=== PATIENT | female | born 1970 | race Caucasian/White ===

== ENCOUNTER → 2017-03-12 | Outpatient (CLI) | payer BC ==
[2017-03-12 19:02] LABS: ALT 33 U/L (9-52); AST 23 U/L (14-36); Alkaline Phosphatase 58 U/L (38-126); Anion Gap 12 mmol/L; Blood Urea Nitrogen 7 mg/dL (7-17); Calcium 9.4 mg/dL (8.4-10.2); Carbon Dioxide 23 mmol/L (22-30); Chloride 102 mmol/L (98-107); Cholesterol 211 mg/dL (<200); Glucose 90 mg/dL (74-99); HDL Cholesterol 53 mg/dL (40-60); Non-African American GFR(MDRD) >60 (>60 ml/min/1.73 sqM); Potassium 4.1 mmol/L (3.5-5.1); Sodium 137 mmol/L (137-145); Total Bilirubin 0.7 mg/dL (0.2-1.3); Triglycerides 160 mg/dL (<150)
[2017-03-13 02:53] LABS: Basophils # (A) 0.1 k/uL (0-0.2); Basophils % (A) 1 %; CH 29.3; CHCM 31.8; Eosinophils # (A) 0.2 k/uL (0-0.7); Eosinophils % (A) 2 %; HCT 48.2 % (34.0-46.0); HDW 2.29; HGB 14.9 gm/dL (11.4-16.0); Luc # (Auto) 0.14; Luc % (Auto) 1; Lymphocytes # (A) 2.1 k/uL (1.0-4.8); Lymphocytes % (A) 21 %; MCH 28.5 pg (25.0-35.0); MCHC 30.8 g/dL (31.0-37.0); MCV 92.5 fL (80.0-100.0); Mean Platelet Volume 9.1; Monocytes # (A) 0.6 k/uL (0-1.0); Monocytes % (A) 6 %; Neutrophils # (A) 6.9 k/uL (1.3-7.7); Neutrophils % (A) 69 %; RBC 5.21 m/uL (3.80-5.40); RDW 13.4 % (11.5-15.5); WBC 10.1 k/uL (3.8-10.6); WBC (Perox) 10.25
== END ==
LOC: MMGSC 11:07
PROVIDERS: ATTEND Family Medicine
DX: Z00.00 Encounter for general adult medical examination without abnormal findings (principal)
CPT/HCPCS: 36415; 80053; 80061; 84439; 84443; 85025

== ENCOUNTER → 2017-03-19 | Outpatient (CLI) | payer BC | LOC: MMGSC 11:29 | PROVIDERS: ATTEND Family Medicine | DX: N89.8 Other specified noninflammatory disorders of vagina (principal); R53.83 Other fatigue | CPT/HCPCS: 36415; 82306; 84480; 87070; 87205; 87252 ==

== ENCOUNTER → 2017-04-12 | Outpatient (CLI) | payer BC | END | disposition home or self-care (01) | LOC: MMGSC 16:14 | PROVIDERS: ATTEND Family Medicine | DX: E03.9 Hypothyroidism, unspecified (principal) | CPT/HCPCS: 36415; 84439; 84443 ==

== ENCOUNTER → 2018-05-20 | Outpatient (CLI) | payer BC ==
--- NOTE | 2018-05-22 10:06 | MM ---
Reason for exam: screening (asymptomatic). Last mammogram was performed 2 years and 4 months ago. History: Patient has history of other cancer at age 36. Family history of breast cancer in paternal aunt at age 60. Took hormonal contraceptives for 6 years beginning at age 17. Physical Findings: A clinical breast exam by your physician is recommended on an annual basis and results should be correlated with mammographic findings. MG 3D Screening Mammo W/Cad Bilateral CC and MLO view(s) were taken. Prior study comparison: January 25, 2016, bilateral MG 3d diag mammo w/cad [facility]. April 06, 2015, left breast MG diagnostic mammo LT w CAD. The breast tissue is heterogeneously dense. This may lower the sensitivity of mammography. No significant changes when compared with prior studies. ASSESSMENT: Negative, BI-RAD 1 RECOMMENDATION: Routine screening mammogram of both breasts in 1 year. Manage on a clinical basis with regard to bilateral breast pain.
== END | disposition home or self-care (01) ==
LOC: RADMAMWWP 16:46
PROVIDERS: ATTEND Family Medicine
DX: Z12.31 Encounter for screening mammogram for malignant neoplasm of breast (principal)
CPT/HCPCS: 77063; 77067

== ENCOUNTER → 2018-09-03 | Outpatient (CLI) | payer BC ==
--- NOTE | 2018-09-04 10:37 | US ---
EXAMINATION TYPE: US axilla LT DATE OF EXAM: 09/03/2018 COMPARISON: NONE CLINICAL HISTORY: R59.0 Localized Enlarged Lymph Node. Patient feels lump left axilla for 3 years, sh e states it comes and goes. The left axilla was scanned. Technologist had patient put finger on area that lump is felt and that area was scanned, too, No definite abnormality noted. IMPRESSION: 1. No ultrasound abnormality at patient's palpable region.
== END | disposition home or self-care (01) ==
LOC: RADUSWWP 16:18
PROVIDERS: ATTEND Family Medicine
DX: R59.0 Localized enlarged lymph nodes (principal)

== ENCOUNTER → 2019-10-23 | Outpatient (CLI) | payer BC ==
--- NOTE | 2019-10-24 13:58 | MM ---
Reason for exam: screening (asymptomatic). Last mammogram was performed 1 year and 5 months ago. History: Patient has history of other cancer at age 36. Family history of breast cancer in paternal aunt at age 60. Took hormonal contraceptives for 6 years beginning at age 17. Physical Findings: A clinical breast exam by your physician is recommended on an annual basis and results should be correlated with mammographic findings. MG 3D Screening Mammo W/Cad Bilateral CC and MLO view(s) were taken. Prior study comparison: May 20, 2018, bilateral MG 3d screening mammo w/cad. January 25, 2016, bilateral MG 3d diag mammo w/cad [facility]. The breast tissue is heterogeneously dense. This may lower the sensitivity of mammography. Stable benign calcifications. There is no discrete abnormality. No significant changes when compared with prior studies. ASSESSMENT: Benign, BI-RAD 2 RECOMMENDATION: Routine screening mammogram of both breasts in 1 year.
== END | disposition home or self-care (01) ==
LOC: RADMAMWWP 16:38
PROVIDERS: ATTEND Family Medicine
DX: Z12.31 Encounter for screening mammogram for malignant neoplasm of breast (principal)
CPT/HCPCS: 77063; 77067

== ENCOUNTER → 2020-10-21 | Outpatient (CLI) | payer BC ==
--- NOTE | 2020-10-21 13:07 | US ---
EXAMINATION TYPE: US pelvis complete transvag DATE OF EXAM: 10/21/2020 COMPARISON: NONE CLINICAL HISTORY: 50-year-old female N95.0 Post menopausal bleeding. TECHNIQUE: Transabdominal sonographic images of the pelvis were acquired. Transvaginal sonographic i mages were medically necessary to better assess the following anatomy: ovaries Date of LMP: One year prior, started a week ago, still bleeding FINDINGS: EXAM MEASUREMENTS: Uterus: 8.5 x 4.0 x 4.4 cm Endometrial Stripe: 0.9 cm Right Ovary: 2.7 x 1.3 x 3.3cm Left Ovary: 2.7 x 1.9 x 1.8cm 1. Uterus: Anteverted, with slightly heterogeneous myometrium. 4 mm cervical nabothian cysts noted. 2. Endometrium: thickened 3. Right Ovary: right simple appearing cyst measuring 1.4 x 1.7 x 1.5cm 4. Left Ovary: wnl 5. Bilateral Adnexa: wnl 6. Posterior cul-de-sac: wnl IMPRESSION: 1. Endometrial stripe is thickened for a postmenopausal female at 9 mm. Differential considerations i nclude endometrial polyps, hyperplasia, and endometrial carcinoma. PROTOCOL OFFICER referral recommended for fu rther evaluation/management. 2. A 1.7 cm cyst of the right ovary. In a postmenopausal female, annual ultrasound surveillance is re commended.
== END | disposition home or self-care (01) ==
LOC: RADUSWWP 10:35
PROVIDERS: ATTEND Family Medicine
DX: N83.201 Unspecified ovarian cyst, right side (principal); R93.89 Abnormal findings on diagnostic imaging of other specified body structures; Z78.0 Asymptomatic menopausal state
CPT/HCPCS: 76830; 76856

== ENCOUNTER → 2020-12-30 | Outpatient (CLI) | payer BC ==
--- NOTE | 2021-01-03 09:52 | MM ---
Reason for exam: screening (asymptomatic). Last mammogram was performed 1 year and 2 months ago. History: Patient is postmenopausal and has history of other cancer at age 36. Family history of breast cancer in paternal aunt at age 60. Took hormonal contraceptives for 6 years beginning at age 17. Physical Findings: A clinical breast exam by your physician is recommended on an annual basis and results should be correlated with mammographic findings. MG 3D Screening Mammo W/Cad Bilateral CC and MLO view(s) were taken. Prior study comparison: October 23, 2019, bilateral MG 3d screening mammo w/cad. May 20, 2018, bilateral MG 3d screening mammo w/cad. No significant changes when compared with prior studies. ASSESSMENT: Benign, BI-RAD 2 RECOMMENDATION: Routine screening mammogram of both breasts in 1 year.
== END | disposition home or self-care (01) ==
LOC: RADMAMWWP 09:36
PROVIDERS: ATTEND Family Medicine
DX: Z12.31 Encounter for screening mammogram for malignant neoplasm of breast (principal); Z78.0 Asymptomatic menopausal state; Z80.3 Family history of malignant neoplasm of breast
CPT/HCPCS: 77063; 77067

== ENCOUNTER → 2023-12-14 | Outpatient (CLI) | payer BC ==
--- NOTE | 2023-12-18 11:15 | MM ---
Reason for Exam: Screening (asymptomatic). Last mammogram was performed 2 year(s) and 11 month(s) ago. Patient History: Menarche at age 10. First Full-Term at age 24. Postmenopausal. Other cancer, age 36. Hormonal Contraceptives for 6 years from age 17 until age 23. Paternal aunt had breast cancer, age 60. Risk Values: Sonia 5 year model risk: 1.3%. NCI Lifetime model risk: 9.1%. Prior Study Comparison: 05/20/2018 Bilateral Screening Mammogram, [facility]. 10/23/2019 Bilateral Screening Mammogram, [facility]. 12/30/2020 Bilateral Screening Mammogram, [facility]. Tissue Density: The breasts are heterogeneously dense, which may obscure small masses. Findings: Analyzed By CAD. There is no suspicious group of microcalcifications or new suspicious mass in either breast. Benign-appearing calcifications. There is an 8 mm nodule within the upper outer quadrant of the left breast for which spot compression views recommended. Overall Assessment: Incomplete: need additional imaging evaluation, BI-RAD 0 Management: Diagnostic Mammogram of the left breast. . Patient should continue monthly self-breast exams. A clinical breast exam by your physician is recommended on an annual basis. This exam should not preclude additional follow-up of suspicious palpable abnormalities. Note on Sonia scores and lifetime risk: 1. A Sonia score greater than 3% is considered moderate risk. If this is the case, consider specialist referral to assess eligibility for a risk reducing agent. 2. If overall lifetime risk for the development of breast cancer is 20% or higher, the patient may qualify for future screening with alternating mammogram and breast MRI. Electronically signed and approved by: Melvin Flores M.D. Radiologis
== END | disposition home or self-care (01) ==
LOC: RADMAMWWP 07:47
PROVIDERS: ATTEND Family Medicine
DX: Z12.31 Encounter for screening mammogram for malignant neoplasm of breast (principal); Z80.3 Family history of malignant neoplasm of breast; Z78.0 Asymptomatic menopausal state
CPT/HCPCS: 77063; 77067

== ENCOUNTER → 2023-12-19 | Outpatient (CLI) | payer BC ==
--- NOTE | 2023-12-19 11:05 | MM ---
Reason for Exam: Additional evaluation requested from abnormal screening. Last screening mammogram was performed less than 1 month ago. Patient History: Menarche at age 10. First Full-Term at age 24. Postmenopausal. Patient has history of breast feeding. Hormonal Contraceptives for 6 years from age 17 until age 23. Paternal aunt had breast cancer, age 60. Risk Values: Sonia 5 year model risk: 1.3%. NCI Lifetime model risk: 9.1%. Prior Study Comparison: 10/23/2019 Bilateral Screening Mammogram, [facility]. 12/30/2020 Bilateral Screening Mammogram, [facility]. 12/14/2023 Bilateral MG 3D screening mammo w/cad, [facility]. Tissue Density: Left: The breasts are heterogeneously dense, which may obscure small masses. Findings: Analyzed By CAD. On compression there is persistence of a 0.5 cm oval located 9 cm from the nipple lower-outer quadrant middle position approximately 4:00. Additional workup with ultrasound is recommended. No suspicious groups of microcalcifications, spiculated or lobular masses, architectural distortion or other secondary signs of malignancy are mammographically apparent. Overall Assessment: Incomplete: need additional imaging evaluation, BI-RAD 0 Management: Diagnostic Breast Ultrasound of the left breast. A negative mammogram report should not preclude additional follow up of suspicious palpable abnormalities. Patient should continue monthly self breast exam. A clinical breast exam by your physician is recommended on an annual basis and results should be correlated with mammographic findings. Electronically signed and approved by: Marino Crawley D.O. Radiologis
--- NOTE | 2023-12-19 13:19 | USB ---
Reason for Exam: Additional evaluation requested from abnormal screening. Patient History: Menarche at age 10. First Full-Term at age 24. Postmenopausal. Patient has history of breast feeding. Hormonal Contraceptives for 6 years from age 17 until age 23. Paternal aunt had breast cancer, age 60. Risk Values: Sonia 5 year model risk: 1.3%. NCI Lifetime model risk: 9.1%. Technique: Method: Targeted. Prior Study Comparison: 10/23/2019 Bilateral Screening Mammogram, [facility]. 12/30/2020 Bilateral Screening Mammogram, [facility]. 12/14/2023 Bilateral MG 3D screening mammo w/cad, [facility]. Findings: The lower outer quadrant of the left breast, the axilla of the left breast and the retroareolar of the left breast were scanned. At the 5:00 position 1 cm from the nipple there is a simple appearing cyst measuring 0.7 x 0.5. In the 4:00 position 9 cm nipple there is a 0.4 x 0.2 x 0.5 cm simple appearing cyst. This area appears to correlate with mammographic finding.. Overall Assessment: Benign, BI-RAD 2 Management: Screening Mammogram of both breasts in 1 year. A clinical breast exam by your physician is recommended on an annual basis and results should be correlated with mammographic findings. This exam should not preclude additional follow-up of suspicious palpable abnormalities. Results were given to the patient verbally at the time of exam. Electronically signed and approved by: Marino Crawley D.O. Radiologis
== END | disposition home or self-care (01) ==
LOC: RADMAMWWP 10:14
PROVIDERS: ATTEND Family Medicine
DX: R92.332 Mammographic heterogeneous density, left breast (principal); Z78.0 Asymptomatic menopausal state; Z80.3 Family history of malignant neoplasm of breast
CPT/HCPCS: 77061; 77065

== ENCOUNTER → 2024-06-24 | Outpatient (CLI) | payer BC ==
[2024-06-24 15:58] VITALS: BP 121/88; PULSE 81; RESP 16; TEMP 97.9
--- NOTE | 2024-06-24 16:45 | P.SLEEP ---
History of Present Illness H&P Date: 06/24/24 This is a 44-year-old female patient who was referred to me for sleep apnea evaluation. The patient was referred by Dr. Sandoval from cardiology. The patient has had difficulties with refractory hypertension and the patient is currently taking 4 different antihypertensive medication. Her blood pressure is finally under good control. She is morbidly obese. She has a preserved LV function without any underlying cardiomyopathy. Her other comorbidities include hyperlipidemia and hypothyroidism and acid reflux. The patient is currently in home care. 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 In the morning, she has another patient that she depends on between 7 AM and 9 AM. She ultimately gets home at around 10 AM and she is going to sleep at around 11 AM in the morning and she wakes up 4 PM. She is averaging about 6 hours of sleep. Takes a few minutes to fall asleep. She snores. She also has fragmented sleep and she is waking up choking and gasping for air. She will occasionally sleep talks. Her current Gansevoort score is at 13. She sleeps on her side and she is a mouth breather. No substance abuse. No alcoholism. No excessive utilization of caffeinated beverages. No history of any motor vehicle accident because of feeling drowsy or sleepy. She wakes up few times the middle of the night to urinate but she is able to generate sleep without any major difficulties. Based on all this, the patient was referred to me for further evaluation. No history of any seizure activity. No anxiety. No depression. No night terrors. No nighttime heartburn chest pain or shortness of breath. Review of Systems Constitutional: Reports daytime sleepiness, Reports fatigue, Reports weight gain Eyes: denies as per HPI, denies blurred vision, denies bulging eye, denies decreased vision, denies diplopia, denies discharge, denies dry eye, denies irritation, denies itching, denies pain, denies photophobia, denies loss of peripheral vision, denies loss of vision, denies tunnel vision/blind spots Ears: deny: decreased hearing, ear discharge, earache, tinnitus Ears, nose, mouth and throat: Reports as per HPI Breasts: absent: as per HPI, change in shape, gynecomastia, masses, nipple discharge, pain, skin changes, swelling Cardiovascular: Reports high blood pressure Respiratory: Reports snoring Gastrointestinal: Reports as per HPI Genitourinary: Reports as per HPI Menstruation: Reports as per HPI Musculoskeletal: Reports as per HPI Musculoskeletal: absent: ankle pain, ankle stiffness, ankle swelling, as per HPI, elbow pain, elbow stiffness, elbow swelling, foot pain, foot stiffness, foot swelling, hand pain, hand stiffness, hand swelling, hip pain, hip stiffness, hip swelling, knee pain, knee stiffness, knee swelling, shoulder pain, shoulder stiffness, shoulder swelling, wrist pain, wrist stiffness, wrist swelling Integumentary: Reports as per HPI Neurological: Reports as per HPI Psychiatric: Reports hypersomnia, Reports irritability, Reports sleep disturbances Endocrine: Reports as per HPI, Reports fatigue Hematologic/Lymphatic: Reports as per HPI Allergic/Immunologic: Reports as per HPI Past Medical History Past Medical History: GERD/Reflux, Hyperlipidemia, Hypertension, Thyroid Disorder Additional Past Medical History / Comment(s): Borderline diabetic, feet swell - have to elevate, then get muscle cramps. History of Any Multi-Drug Resistant Organisms: None Reported Additional Past Surgical History / Comment(s): Thyroidectomy, wisdom tooth extraction Past Psychological History: Depression Smoking Status: Current every day smoker, Vaper Past Alcohol Use History: Rare Past Drug Use History: Marijuana Additional Drug Use History / Comment(s): Gummies and marijuana for pain and sleep. - Past Family History Father Family Medical History: Congestive Heart Failure (CHF), CVA/TIA, GERD/Reflux, Hyperlipidemia, Hypertension, Sleep Apnea/CPAP/BIPAP Additional Family Medical History / Comment(s): Snoring, quadrauple bypass - 5 stents - heart was at about 40%, Mother Family Medical History: Thyroid Disorder Additional Family Medical History / Comment(s): Restless legs, Medications and Allergies Home Medications Medication Instructions Recorded Confirmed Type Atorvastatin [Lipitor] 20 mg PO DAILY 06/24/24 06/24/24 History Ibuprofen [Motrin] 800 mg PO DIRECTED 06/24/24 06/24/24 History Levothyroxine Sodium [Synthroid] 150 mcg PO DAILY 06/24/24 06/24/24 History Omeprazole 20 mg PO DAILY 06/24/24 06/24/24 History Spironolactone 50 mg PO DAILY 06/24/24 06/24/24 History amLODIPine [Norvasc] 10 mg PO DAILY 06/24/24 06/24/24 History carvediloL [Coreg] 6.25 mg PO BID 06/24/24 06/24/24 History lisinopriL 40 mg PO DAILY 06/24/24 06/24/24 History Allergies Allergy/AdvReac Type Severity Reaction Status Date / Time Sulfa (Sulfonamide AdvReac Unknown Unknown Unverified 06/24/24 15:45 Antibiotics) Physical Exam Vitals: Vital Signs Temp Pulse Resp BP Pulse Ox 06/24/24 15:58 97.9 F 81 16 121/88 97 Intake and Output 06/24/24 06/24/24 06/24/24 06:59 14:59 22:59 Other: Weight 114.419 kg The patient appeared well nourished and normally developed. Vital signs as documented. The patient is morbidly obese with a BMI of 43.9 and a weight of 252 pounds Head exam is unremarkable. No scleral icterus or corneal arcus noted. Neck is without jugular venous distension, thyromegaly, or carotid bruits. Carotid upstrokes are brisk bilaterally. Mallampati class IV with significant crowding of posterior pharynx Lungs are clear to auscultation and percussion. Cardiac exam reveals the PMI to be normally sized and situated. Rhythm is regular. First and second heart sounds normal. No murmurs, rubs or gallops. Abdominal exam reveals normal bowel sounds, no masses, no organomegaly and no aortic enlargement. Extremities are nonedematous and both femoral and pedal pulses are normal. Examination of the skin revealed no evidence of significant rashes, suspicious appearing nevi or other concerning lesions. Neurologically, the patient is awake and alert and the patient does not have any focal neurological deficit. Cranial nerves are essentially intact. 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 Optimize sleep hygiene measures. Will recommend maintaining a regular sleep schedule and avoid any form of sleep deprivation and the patient was asked to extend sleep hours on average of 7 hours per night. A polysomnography be obtained to rule out obstructive sleep apnea. This will be an afternoon study as the patient is doing night shifts. Continue same medication and monitor the blood pressure control. Will continue to follow make further recommendations based on the results of the sleep study. Sleep Note - Sleep Data ESS Total: 13 - Sleep Note Sleep Note: Temperature: 97.9 F Pulse Rate: 81 Respiratory Rate: 16 Blood Pressure: 121/88 SpO2: 97 Height: 5 ft 3.5 in Weight: 114.419 kg BMI: Neck Circumference: 16.5
== END ==
LOC: 3 N SLEEP 15:34
PROVIDERS: ATTEND Internal Medicine Critical Care Medicine
CPT/HCPCS: 99211

== ENCOUNTER → 2024-08-15 | Outpatient (CLI) | payer BC ==
--- NOTE | 2024-08-19 00:53 | P.PCN ---
Date of Procedure: 08/16/24 Indications for Procedure: Home sleep study testing Date of service is 08/16/2024 Pertinent history This is a 44-year-old female patient who was referred to me for sleep apnea evaluation. The patient was referred by Dr. Sandoval from cardiology. The patient has had difficulties with refractory hypertension and the patient is currently taking 4 different antihypertensive medication. Her blood pressure is finally under good control. She is morbidly obese. She has a preserved LV function without any underlying cardiomyopathy. Her other comorbidities include hyperlipidemia and hypothyroidism and acid reflux. The patient is currently in home care. 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 In the morning, she has another patient that she depends on between 7 AM and 9 AM. She ultimately gets home at around 10 AM and she is going to sleep at around 11 AM in the morning and she wakes up 4 PM. She is averaging about 6 hours of sleep. Takes a few minutes to fall asleep. She snores. She also has fragmented sleep and she is waking up choking and gasping for air. She will occasionally sleep talks. Her current L[place]ay score is at 13. She sleeps on her side and she is a mouth breather. No substance abuse. No alcoholism. No excessive utilization of caffeinated beverages. No history of any motor vehicle accident because of feeling drowsy or sleepy. She wakes up few times the middle of the night to urinate but she is able to generate sleep without any major difficulties. Based on all this, the patient was referred to me for further evaluation. No history of any seizure activity. No anxiety. No depression. No night terrors. No nighttime heartburn chest pain or shortness of breath. Technical description The [employer] system was used to complete his home sleep study. This is a type III home sleep study evaluation. Total recording duration was 10 hours and 50 minutes. The study started at 10:55 AM and the study ended at 9:13 PM. This was a morning study. There was a total of 9 hours and 55 minutes of flow evaluation and 10 hours and 2 minutes of oxygen saturation evaluation. Results The respiratory analysis showed a total of 63 obstructive apneas and a total of 123 obstructive hypopneas. The resulting apnea pop index was 18.7 consistent with moderate to severe disease Oxygenation analysis The patient's baseline pulse ox while awake was 97%. Average pulse ox was 90% during sleep with a minimum pulse ox of 73% and the patient spent approximately 1 hours and 51 minutes of the sleep time below pulse ox of 89%. 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 Based on that, the patient will be encouraged to come into the sleep center to undergo a CPAP titration and this will be a morning study. Encourage weight loss. Optimize sleep hygiene measures. Will recommend maintaining a regular sleep schedule and avoid any form of sleep deprivation and the patient was asked to extend sleep hours on average of 7 hours per night.
== END ==
LOC: 3 N SLEEP 11:11
PROVIDERS: ATTEND Internal Medicine Critical Care Medicine
DX: G47.33 Obstructive sleep apnea (adult) (pediatric) (principal); G47.36 Sleep related hypoventilation in conditions classified elsewhere; G47.10 Hypersomnia, unspecified; I10 Essential (primary) hypertension; E03.9 Hypothyroidism, unspecified; E78.5 Hyperlipidemia, unspecified; K21.9 Gastro-esophageal reflux disease without esophagitis; E66.01 Morbid (severe) obesity due to excess calories; Z68.41 Body mass index [BMI] 40.0-44.9, adult; Z88.2 Allergy status to sulfonamides; Z79.899 Other long term (current) drug therapy; Z79.890 Hormone replacement therapy

== ENCOUNTER 2024-10-12 19:41 | Outpatient (CLI) | payer BC ==
--- NOTE | 2024-10-26 18:51 | P.PCN ---
Date of Procedure: 10/12/24 Operative Findings: CPAP titration study Date of service is 10/12/2024 Pertinent history This is a 44-year-old female patient who was referred to me for sleep apnea evaluation. The patient was referred by Dr. Sandoval from cardiology. The patient has had difficulties with refractory hypertension and the patient is currently taking 4 different antihypertensive medication. Her blood pressure is finally under good control. She is morbidly obese. She has a preserved LV function without any underlying cardiomyopathy. Her other comorbidities include hyperlipidemia and hypothyroidism and acid reflux. The patient is currently in home care. 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 In the morning, she has another patient that she depends on between 7 AM and 9 AM. She ultimately gets home at around 10 AM and she is going to sleep at around 11 AM in the morning and she wakes up 4 PM. She is averaging about 6 hours of sleep. Takes a few minutes to fall asleep. She snores. She also has fragmented sleep and she is waking up choking and gasping for air. She will occasionally sleep talks. Her current Englewood score is at 13. She sleeps on her side and she is a mouth breather. No substance abuse. No alcoholism. No excessive utilization of caffeinated beverages. No history of any motor vehicle accident because of feeling drowsy or sleepy. She wakes up few times the middle of the night to urinate but she is able to generate sleep without any major difficulties. Based on all this, the patient was referred to me for further evaluation. No history of any seizure activity. No anxiety. No depression. No night terrors. No nighttime heartburn chest pain or shortness of breath. The patient underwent a home sleep study 08/16/2024 and the patient was diagnosed having moderate to severe SHAHRZAD with an AHI of 18.7 and the patient is currently presenting to undergo a CPAP titration study Pertinent physical findings The patient's weight is 250 pounds with a body mass index of 43.6 Technical description The patient was studied using a standard complex polysomnography protocol that included recording of the Lead II EKG, Central, occipital and frontal EEG, right and left outer canthus EOG, submental EMG, right and left anterior tibialis EMG, respiratory airflow by thermocouple and or pressure/flow transducer, respiratory efforts by abdominal and thoracic PVDF belts, oxygen saturation by cable oximetry. Position by observation synchronized the PSG. Equipment used: SLID. Stepwise CPAP titration was done to eliminate all obstructive respiratory events Sleep architecture The total recording duration was 401.5 minutes. The total sleep time was 365.5 minutes. The wake after sleep onset time was 25 minutes. The overall sleep efficiency was 91%. Latency to sleep onset was 11 minutes. The latest REM sleep was 57.5 minutes. The sleep architecture was characterized by 7.4% stage I, 56.1% stage II, 13.3% stage III, 23.3% REM sleep. The total arousal index was 10.8 Respiratory summary CPAP titration was done and the initial pressure started at 5 cm of water and the pressure was gradually increased by increments of 1 cm of water to reach a maximum CPAP pressure of 8 cm of water. This was a very successful titration. During the titration, all sleep stages were encountered including REM sleep and the patient essentially was assuming a supine and nonsupine body position. At a target CPAP pressure of 8 cm of water, there was adequate elimination of the obstructive respiratory events and the titration itself was successful. Oxygenation analysis No significant oxygen desaturations encountered at the target CPAP pressure of 8 cm of water Sleep maintenance The total number of arousals were 66 with an index of 10.8. The respiratory arousal index was 0 Periodic limb movement activity Excessive periodic limb movement activities were noted, a total of 149 with an index of 24.5. In addition, there was 6 periodic limb movement activity with arousals with a PLM arousal index of 1.0. 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 The patient is going to be provided with an AirFit F40 medium size fullface mask. Patient will be encouraged to lose weight Optimize sleep hygiene measures. Will recommend maintaining a regular sleep schedule and avoid any form of sleep deprivation and the patient was asked to extend sleep hours on average of 7 hours per night. The patient was seen back in 30 to 90 days to assess clinical response and compliancy while being on CPAP therapy.
== END 2024-10-13 05:05 | disposition home or self-care (01) ==
LOC: 3 N SLEEP 19:41
PROVIDERS: ATTEND Internal Medicine Critical Care Medicine
DX: G47.33 Obstructive sleep apnea (adult) (pediatric) (principal); G47.10 Hypersomnia, unspecified; E66.01 Morbid (severe) obesity due to excess calories; E03.9 Hypothyroidism, unspecified; I10 Essential (primary) hypertension; K21.9 Gastro-esophageal reflux disease without esophagitis; E78.5 Hyperlipidemia, unspecified; R06.83 Snoring; Z68.41 Body mass index [BMI] 40.0-44.9, adult; Z88.2 Allergy status to sulfonamides
CPT/HCPCS: 95811

== ENCOUNTER → 2025-01-19 | Outpatient (CLI) | payer BC ==
--- NOTE | 2025-01-19 15:35 | MM ---
Reason for Exam: Screening (asymptomatic). Last mammogram was performed 1 year(s) and 1 month(s) ago. Patient History: Menarche at age 10. First Full-Term at age 24. Postmenopausal. Patient has history of breast feeding. Hormonal Contraceptives for 6 years from age 17 until age 23. Paternal aunt had breast cancer, age 60. Risk Values: Sonia 5 year model risk: 1.4%. NCI Lifetime model risk: 8.9%. Prior Study Comparison: 12/30/2020 Bilateral Screening Mammogram, [facility]. 12/14/2023 Bilateral MG 3D screening mammo w/cad, [facility]. 12/19/2023 Left MG 3D work up w/cad , [facility]. Tissue Density: The breasts are heterogeneously dense, which may obscure small masses. Findings: Analyzed By CAD. There are a few benign-appearing round calcifications scattered throughout the bilateral breasts redemonstrated. There is no suspicious new group of microcalcifications or new suspicious mass in either breast. Overall Assessment: Benign, BI-RAD 2 Management: Screening Mammogram of both breasts in 1 year. . Patient should continue monthly self-breast exams. A clinical breast exam by your physician is recommended on an annual basis. This exam should not preclude additional follow-up of suspicious palpable abnormalities. Note on Sonia scores and lifetime risk: 1. A Sonia score greater than 3% is considered moderate risk. If this is the case, consider specialist referral to assess eligibility for a risk reducing agent. 2. If overall lifetime risk for the development of breast cancer is 20% or higher, the patient may qualify for future screening with alternating mammogram and breast MRI. [facility], , 01/19/2025 3:32 PM. Electronically signed and approved by: Antonio Verma M.D.
== END | disposition home or self-care (01) ==
LOC: RADMAMWWP 14:01
PROVIDERS: ATTEND Family Medicine
DX: Z12.31 Encounter for screening mammogram for malignant neoplasm of breast (principal); R92.323 Mammographic fibroglandular density, bilateral breasts; Z78.0 Asymptomatic menopausal state; Z80.3 Family history of malignant neoplasm of breast
CPT/HCPCS: 77063; 77067

== ENCOUNTER → 2025-04-15 | Outpatient (CLI) | payer BC ==
--- NOTE | 2025-04-15 13:00 | MM ---
Reason for Exam: Clinical finding. Last screening mammogram was performed 3 month(s) ago. Patient History: Menarche at age 10. First Full-Term at age 24. Postmenopausal. Patient has history of breast feeding. Hormonal Contraceptives for 6 years from age 17 until age 23. Paternal aunt had breast cancer, age 60. Risk Values: Sonia 5 year model risk: 1.4%. NCI Lifetime model risk: 8.7%. Prior Study Comparison: 12/14/2023 Bilateral MG 3D screening mammo w/cad, [facility]. 12/19/2023 Left MG 3D work up w/cad LT, [facility]. 01/19/2025 Bilateral MG 3D screening mammo w/cad, [facility]. Tissue Density: Left: The breasts are heterogeneously dense, which may obscure small masses. Findings: Analyzed By CAD. Focal asymmetry correlate with palpable abnormality in the left breast. Overall Assessment: Incomplete: need additional imaging evaluation, BI-RAD 0 Management: Diagnostic Breast Ultrasound of the left breast. Results were given to the patient verbally at the time of exam. Patient should continue monthly self-breast exams. A clinical breast exam by your physician is recommended on an annual basis. This exam should not preclude additional follow-up of suspicious palpable abnormalities. Note on Sonia scores and lifetime risk: 1. A Sonia score greater than 3% is considered moderate risk. If this is the case, consider specialist referral to assess eligibility for a risk reducing agent. 2. If overall lifetime risk for the development of breast cancer is 20% or higher, the patient may qualify for future screening with alternating mammogram and breast MRI. [facility], , 04/15/2025 12:57 PM. Electronically signed and approved by: Yohan Arredondo DO
--- NOTE | 2025-04-15 13:02 | USB ---
Reason for Exam: Clinical finding. Patient History: Menarche at age 10. First Full-Term at age 24. Postmenopausal. Patient has history of breast feeding. Hormonal Contraceptives for 6 years from age 17 until age 23. Paternal aunt had breast cancer, age 60. Risk Values: Sonia 5 year model risk: 1.4%. NCI Lifetime model risk: 8.7%. Technique: Method: Targeted. Prior Study Comparison: 12/14/2023 Bilateral MG 3D screening mammo w/cad, [facility]. 12/19/2023 Left MG 3D work up w/cad LT, [facility]. 01/19/2025 Bilateral MG 3D screening mammo w/cad, [facility]. Findings: The upper outer quadrant of the left breast, the axilla of the left breast and the retroareolar of the left breast were scanned. Technique utilized:US breast limited LT Image; Ultrasound imaging of: All 4 quadrants, the retroareolar region and axilla. Complex fluid collection area of palpable abnormality with peripheral vascularity and internal movement measuring up to 2.0 cm x 7 mm. Overall Assessment: Probably benign, BI-RAD 3 Management: Diagnostic Breast Ultrasound of the left breast in 3 months. Findings most consistent with abscess. Short-term follow up in 3 months recommended to ensure resolution. Consider percutaneous incision and drainage. A clinical breast exam by your physician is recommended on an annual basis and results should be correlated with mammographic findings. This exam should not preclude additional follow-up of suspicious palpable abnormalities. Results were given to the patient verbally at the time of exam. [facility], , 04/15/2025 12:58 PM. Electronically signed and approved by: Yohan Arredondo DO
== END | disposition home or self-care (01) ==
LOC: RADMAMWWP 11:35
PROVIDERS: ATTEND Family Medicine
DX: R92.332 Mammographic heterogeneous density, left breast (principal); N61.0 Mastitis without abscess; Z78.0 Asymptomatic menopausal state; Z80.3 Family history of malignant neoplasm of breast
CPT/HCPCS: 77061; 77065